=== PATIENT | male | born 2000 | race Two or more races ===

== ENCOUNTER 2022-06-20 17:58 | Emergency (ER) | payer OTHER | END 2022-06-20 19:25 | disposition home or self-care (01) | LOC: FB.ED 17:58 | DX: T65.891A Toxic effect of other specified substances, accidental (unintentional), initial encounter (principal); T20.50XA Corrosion of first degree of head, face, and neck, unspecified site, initial encounter; E66.9 Obesity, unspecified; Z68.41 Body mass index [BMI] 40.0-44.9, adult; Z72.0 Tobacco use; Y99.0 Civilian activity done for income or pay; Y92.89 Other specified places as the place of occurrence of the external cause | CPT/HCPCS: 99283 ==

== ENCOUNTER 2023-04-07 14:04 | Inpatient (IN) | payer SELFPAY ==
[2023-04-07 14:48] LABS: BASOPHILS PERCENT AUTO 0.3 % (0.3-3.8); EOSINOPHILS PERCENT AUTO 0.2 % (0.1-6.8); HEMOGLOBIN 16.5 g/dL (12.9-17.7); LYMPHOCYTES PERCENT AUTO 14.6 % (15.8-45.3); MEAN CORPUSCULAR HEMOGLOBIN 29.1 pg (27.0-33.3); MEAN CORPUSCULAR VOLUME 88.2 fL (80.8-98.7); MEAN PLATELET VOLUME 7.9 fL (6.7-11.0); MONOCYTES ABSOLUTE AUTO 0.8 x10-3/uL (0.0-1.2); MONOCYTES PERCENT AUTO 5.6 % (5.5-15.2); NEUTROPHILS PERCENT AUTO 79.3 % (40.3-71.8); PLATELET COUNT,PLT 215 x10(3)uL (117-477); RED BLOOD CELL COUNT 5.67 x10(6)uL (3.90-5.90); WHITE BLOOD CELL COUNT,WBC 13.9 x10-3/uL (3.2-10.1)
[2023-04-07 15:04] LABS: ALANINE AMINOTRANSFERASE,ALT 37 U/L (12-36); ALBUMIN 3.9 g/dL (3.5-5.2); ALKALINE PHOSPHATASE 101 IU/L (56-112); ASPARTATE AMNIOTRANSFERASE,AST 25 IU/L (5-25); BILIRUBIN TOTAL 0.5 mg/dL (0.1-1.3); BLOOD UREA NITROGEN,BUN 4 mg/dL (7-18); BUN/CREATININE RATIO 4.4 (9-20); CALCIUM 8.9 mg/dL (8.6-10.2); CARBON DIOXIDE,CO2 26 mmol/L (21-32); CHLORIDE,CL 104 mmol/L (100-110); CREATININE 0.9 mg/dL (0.70-1.30); EST CRCL DRUG DOSING (CG) 147.15 mL/min; ESTIMATED GFR 122 mL/min (>60); GLUCOSE RANDOM 87 mg/dL (80-116); POTASSIUM,K 4.1 mmol/L (3.5-5.3); PROTEIN TOTAL,TP 7.7 g/dL (6.0-8.0); SODIUM,NA 140 mmol/L (135-145)
[2023-04-07 16:17] LABS: INFLUENZA A NAA NEGATIVE (NEGATIVE); INFLUENZA B NAA NEGATIVE (NEGATIVE); RESPIRATORY SYNCYTIAL VIR NAA NEGATIVE (NEGATIVE)
[2023-04-07 16:18] LABS: CORONAVIRUS COVID-19 NAA NEGATIVE (NEGATIVE)
[2023-04-07 16:31] LABS: LACTIC ACID 2.4 mmol/L (0.4-2.0)
[2023-04-07] MEDS: Sodium Chloride 0.9% 1,000 ML IV SCH (17:00)
[2023-04-07] MEDS: cefTRIAXone 2 GM Vial IVPUSH ONE (17:11)
[2023-04-07] MEDS: Azithromycin 500 MG in Sodium Chloride 0.9% 250 ML IV ONE (17:13)
[2023-04-07] MEDS: Ondansetron 4 MG/2 ML SDV IVPUSH ONE (17:24)
[2023-04-07] MEDS: Acetaminophen 500 MG Tab PO ONE (17:42)
[2023-04-07] MEDS ORDERED: Albuterol 0.083% 2.5 MG/3 ML Neb Soln NEB PRN (17:53)
[2023-04-07] MEDS ORDERED: Ondansetron 4 MG/2 ML SDV IV PRN (17:53)
[2023-04-07] MEDS ORDERED: Sennosides/Docusate Sodium 50-8.6 MG Tab PO PRN (17:53)
[2023-04-07] MEDS: Enoxaparin 40 MG/0.4 ML Syringe SUBCUT SCH (19:50)
[2023-04-07] MEDS: Albuterol/Ipratropium 3.0-0.5 MG/3 ML Neb Soln NEB SCH (20:01)
[2023-04-07] MEDS: Acetaminophen 325 MG Tab PO PRN (22:33)
[2023-04-08] MEDS: Acetaminophen/HYDROcodone 325-5 MG Tab PO PRN (06:07)
[2023-04-08] MEDS ORDERED: Ampicillin/Sulbactam Na 3 GM in Sodium Chloride 0.9% 100 ML IV SCH (09:00)
[2023-04-08 11:16] LABS: BASOPHILS ABSOLUTE AUTO 0.1 x10-3/uL (0.0-0.3); BASOPHILS PERCENT AUTO 0.6 % (0.3-3.8); EOSINOPHILS ABSOLUTE AUTO 0.1 x10-3/uL (0.0-0.6); EOSINOPHILS PERCENT AUTO 0.8 % (0.1-6.8); HEMATOCRIT 44.6 % (38.3-50.1); HEMOGLOBIN 14.7 g/dL (12.9-17.7); LYMPHOCYTES ABSOLUTE AUTO 2.3 x10-3/uL (0.5-4.5); LYMPHOCYTES PERCENT AUTO 19.3 % (15.8-45.3); MEAN CORPUSCULAR HEMOGLOBIN 28.7 pg (27.0-33.3); MEAN CORPUSCULAR VOLUME 86.9 fL (80.8-98.7); MEAN PLATELET VOLUME 7.7 fL (6.7-11.0); MONOCYTES ABSOLUTE AUTO 0.8 x10-3/uL (0.0-1.2); MONOCYTES PERCENT AUTO 6.7 % (5.5-15.2); NEUTROPHILS ABSOLUTE AUTO 8.7 x10-3/uL (1.7-6.9); NEUTROPHILS PERCENT AUTO 72.6 % (40.3-71.8); PLATELET COUNT,PLT 187 x10(3)uL (117-477); RED BLOOD CELL COUNT 5.14 x10(6)uL (3.90-5.90); WHITE BLOOD CELL COUNT,WBC 11.9 x10-3/uL (3.2-10.1)
[2023-04-08 11:23] LABS: A/G RATIO 0.9; ALANINE AMINOTRANSFERASE,ALT 30 U/L (12-36); ALBUMIN 3.4 g/dL (3.5-5.2); ALKALINE PHOSPHATASE 88 IU/L (56-112); ASPARTATE AMNIOTRANSFERASE,AST 18 IU/L (5-25); BILIRUBIN TOTAL 0.7 mg/dL (0.1-1.3); BLOOD UREA NITROGEN,BUN 8 mg/dL (7-18); CALCIUM 8.6 mg/dL (8.6-10.2); CARBON DIOXIDE,CO2 28 mmol/L (21-32); CHLORIDE,CL 104 mmol/L (100-110); EST CRCL DRUG DOSING (CG) 117.61 mL/min; ESTIMATED GFR 108 mL/min (>60); GLUCOSE RANDOM 149 mg/dL (80-116); POTASSIUM,K 4.2 mmol/L (3.5-5.3); SODIUM,NA 139 mmol/L (135-145)
[2023-04-08] MEDS: Iopamidol 755 Mg/ML 100 ML Bottle IV SCH (11:50)
[2023-04-08] MEDS: Apixaban 5 MG Tab PO SCH (13:12)
[2023-04-08] MEDS ORDERED: Hydrocortisone Sodium Succinate 100 MG/2 ML SDV IVPUSH ONE (13:22)
[2023-04-08] MEDS: methylPREDNISolone Sodium Succinate 125 MG/2 ML SDV IVPUSH ONE (13:44)
[2023-04-08] MEDS: Sodium Chloride 0.9% 10 ML Syringe FLUSH PRN (13:47)
[2023-04-08] MEDS: cefTRIAXone 1 GM Vial IVPUSH SCH (17:14)
[2023-04-08] MEDS: Azithromycin 500 MG in Sodium Chloride 0.9% 250 ML IV SCH (17:44)
[2023-04-08] MEDS: methylPREDNISolone Sodium Succinate 125 MG/2 ML SDV IVPUSH SCH (21:40)
[2023-04-08] MEDS: Sertraline 50 MG Tab PO SCH (21:45)
[2023-04-09 09:32] LABS: HEMOGLOBIN A1C 5.8 % (<5.7)
[2023-04-09] MEDS: Pantoprazole 40 MG Tab.CR PO SCH (18:07)
[2023-04-10] MEDS: Aluminum Hydroxide/Magnesium Hydroxide Susp 30 ML Cup PO PRN (01:17)
== END 2023-04-10 13:05 | disposition home or self-care (01) | DRG 175 ==
LOC: FB.ED 14:04 → FB.MS 17:53
PROVIDERS: ADMIT Emergency Medicine; ATTEND Family Medicine
DX: I26.99 Other pulmonary embolism without acute cor pulmonale (principal); J18.9 Pneumonia, unspecified organism; Z68.41 Body mass index [BMI] 40.0-44.9, adult; G47.33 Obstructive sleep apnea (adult) (pediatric); E66.9 Obesity, unspecified; F17.210 Nicotine dependence, cigarettes, uncomplicated; F41.9 Anxiety disorder, unspecified
CPT/HCPCS: 0241U; 36415; 70450; 71045; 71275; 80053; 83036; 83605; 83880; 84484; 85025; 85379; 87040; 93005; 93010; 94150; 94640; 96365; 96375; 99222; 99232; 99239; 99284; 99285-25; A9270-GY; J0456; J0696; J1650; J2405; J2930; J3490; J7030; J7050; J7620; Q9967

== ENCOUNTER 2023-07-22 00:01 | Emergency (ER) | payer SELFPAY ==
[2023-07-22 00:59] LABS: BASOPHILS ABSOLUTE AUTO 0.1 x10-3/uL (0.0-0.3); EOSINOPHILS ABSOLUTE AUTO 0.3 x10-3/uL (0.0-0.6); EOSINOPHILS PERCENT AUTO 3.5 % (0.1-6.8); HEMOGLOBIN 14.8 g/dL (12.9-17.7); LYMPHOCYTES ABSOLUTE AUTO 3.5 x10-3/uL (0.5-4.5); LYMPHOCYTES PERCENT AUTO 39.1 % (15.8-45.3); MEAN CORPUSCULAR HEMOGLOBIN 28.2 pg (27.0-33.3); MEAN CORPUSCULAR HGB CONC 32.3 g/dL (28.7-35.3); MEAN CORPUSCULAR VOLUME 87.4 fL (80.8-98.7); MEAN PLATELET VOLUME 7.9 fL (6.7-11.0); MONOCYTES ABSOLUTE AUTO 0.8 x10-3/uL (0.0-1.2); MONOCYTES PERCENT AUTO 9.4 % (5.5-15.2); NEUTROPHILS ABSOLUTE AUTO 4.1 x10-3/uL (1.7-6.9); PLATELET COUNT,PLT 250 x10(3)uL (117-477); RED BLOOD CELL COUNT 5.26 x10(6)uL (3.90-5.90); RED CELL DISTRIBUTION WIDTH 13.7 % (12.4-15.0); WHITE BLOOD CELL COUNT,WBC 8.8 x10-3/uL (3.2-10.1)
[2023-07-22 01:02] LABS: BLOOD UREA NITROGEN,BUN 8 mg/dL (7-18); BUN/CREATININE RATIO 8.9 (9-20); CALCIUM 8.8 mg/dL (8.6-10.2); CARBON DIOXIDE,CO2 28 mmol/L (21-32); CHLORIDE,CL 105 mmol/L (100-110); CREATININE 0.9 mg/dL (0.70-1.30); EST CRCL DRUG DOSING (CG) 138.91 mL/min; ESTIMATED GFR 122 mL/min (>60); GLUCOSE RANDOM 105 mg/dL (80-116); POTASSIUM,K 3.9 mmol/L (3.5-5.3); SODIUM,NA 141 mmol/L (135-145)
[2023-07-22 01:08] LABS: ALANINE AMINOTRANSFERASE,ALT 39 U/L (12-36); ALBUMIN 3.5 g/dL (3.5-5.2); ALKALINE PHOSPHATASE 84 IU/L (56-112); ASPARTATE AMNIOTRANSFERASE,AST 24 IU/L (5-25); BILIRUBIN TOTAL 0.5 mg/dL (0.1-1.3); PROTEIN TOTAL,TP 6.9 g/dL (6.0-8.0)
[2023-07-22 01:11] LABS: TROPONIN I 4.6 pg/mL (4.0-60.3)
[2023-07-22 01:17] LABS: C-REACTIVE PROTEIN < 0.50 mg/dL (<0.50)
[2023-07-22 02:18] LABS: BASE EXCESS VENOUS,POC -1 mmol/L (-2 - 3+); PCO2 VENOUS,POC 47 mmHg (41-51); PH VENOUS,POC 7.34 pH Units (7.32-7.43)
[2023-07-22] MEDS: Iopamidol 755 Mg/ML 100 ML Bottle IV SCH (02:22)
[2023-07-22] MEDS: Aspirin 81 MG Tab.Chew PO ONE (02:58)
== END 2023-07-22 04:00 | disposition home or self-care (01) ==
LOC: FB.ED 00:01
DX: R07.9 Chest pain, unspecified (principal); F17.200 Nicotine dependence, unspecified, uncomplicated; Z79.01 Long term (current) use of anticoagulants; Z79.899 Other long term (current) drug therapy
CPT/HCPCS: 36415; 71045; 71275; 80053; 83735; 84484; 85025; 85379; 86140; 93005; 99285; A9270; Q9967; 93010; 99283